=== PATIENT | male | born 1955 | race Hispanic/Latino ===

== ENCOUNTER 2018-01-15 17:03 | Observation (INO) | payer BC ==
[~2018-01-15] VITALS: Ht 165.1 cm; Wt 70.8 kg
[2018-01-15] MEDS ORDERED: SODIUM CHLORIDE 0.9% 1000ML 1,000 ML IV STA (17:23)
[2018-01-15] MEDS ORDERED: ONDANSETRON HCL INJ 2 MG/ML VIAL IV STA (17:23)
[2018-01-15] MEDS ORDERED: ASPIRIN 81 MG CHEW TAB PO ONE (17:30)
[2018-01-15 17:46] LABS: AMPHETAMINES SCREEN,URINE NEGATIVE (NEGATIVE); BENZODIAZEPINES SCREEN,URINE NEGATIVE (NEGATIVE); CLARITY,URINE CLEAR (CLEAR); COLOR,URINE YELLOW (YELLOW); KETONES,URINE 1+ (NEGATIVE); LEUKOCYTE ESTERASE ,URINE NEGATIVE (NEGATIVE); NITRITE,URINE NEGATIVE (NEGATIVE); PHENCYCLIDINE SCREEN,URINE NEGATIVE (NEGATIVE); PROTEIN,URINE DIPSTICK NEGATIVE (NEGATIVE)
[2018-01-15 17:47] LABS: BILIRUBIN,URINE NEGATIVE (NEGATIVE); URINE UROBILINOGEN 0.2 mg/dL (0.2 - 1)
[2018-01-15 17:49] LABS: BASOPHILS # (AUTO) 0.1 (0.0-0.1); EOSINOPHILS % 0.6 % (0.0-6.0); HEMATOCRIT 40.1 % (38.2-49.6); HEMOGLOBIN 14.6 g/dL (14.0-18.0); LYMPHOCYTES # (AUTO) 0.9 (1.0-3.2); LYMPHOCYTES % 17.9 % (18.0-39.1); MEAN CORPUSCULAR HEMOGLOBIN 34.7 pg (28-32); MEAN CORPUSCULAR HGB CONC 36.4 g/dL (31-35); MEAN CORPUSCULAR VOLUME 95.2 fL (81-99); MONOCYTES # (AUTO) 0.7 (0.2-0.8); MONOCYTES % 12.8 % (4.4-11.3); NEUTROPHILS # (AUTO) 3.4 (2.1-6.9); NEUTROPHILS % 67.5 % (38.7-80.0); PLATELET COUNT 162 x10e3/uL (140-360); RED BLOOD COUNT 4.21 x10e6/uL (4.3-5.7)
[2018-01-15 17:59] LABS: INR 0.79; PARTIAL THROMBOPLASTIN TIME 26.1 seconds (23.8-35.5); PROTHROMBIN TIME 11.7 seconds (11.9-14.5)
[2018-01-15 18:08] LABS: BACTERIA,URINE RARE /HPF; EPITHELIAL CELLS,URINE RARE /LPF
[2018-01-15 18:09] LABS: ALANINE AMINOTRANSFERASE 56 IU/L (0-55); ALBUMIN 4.9 g/dL (3.5-5.0); ALBUMIN/GLOBULIN RATIO 1.9 (0.8-2.0); ALKALINE PHOSPHATASE 63 IU/L (40-150); ANION GAP 19.7 mmol/L (8-16); BLOOD UREA NITROGEN 5 mg/dL (7-26); BUN/CREATININE RATIO 7 (6-25); CARBON DIOXIDE 28 mmol/L (22-29); CHLORIDE 82 mmol/L (98-107); CREATINE KINASE 323 IU/L (30-200); CREATININE, SERUM 0.76 mg/dL (0.72-1.25); EST GLOMERULAR FILTRATION RATE > 60 ML/MIN (60-); GLUCOSE 104 mg/dL (74-118); LIPASE 21 U/L (8-78); MAGNESIUM 1.8 MG/DL (1.3-2.1); SODIUM 127 mmol/L (136-145)
[2018-01-15 18:11] LABS: POTASSIUM 2.7 mmol/L (3.5-5.1)
[2018-01-15] MEDS ORDERED: MULTIVITAMINS- 12 INJECTION 10 ML, FOLIC ACID MDV 5 MG, THIAMINE HCL INJ 100 MG in SODI... IV ONE ×2 (18:15→18:30)
[2018-01-15 18:28] LABS: THYROID STIMULATING HORMONE 1.565 uIU/mL (0.350-4.940)
[2018-01-15] MEDS ORDERED: OXAZEPAM 10 MG CAP PO PRN (18:30)
[2018-01-15] MEDS ORDERED: FAMOTIDINE 20 MG/2 ML VIAL IV ONE (18:30)
[2018-01-15] MEDS ORDERED: LACTULOSE SYRUP 20 GM/30 ML UDC PO PRN (18:30)
[2018-01-15] MEDS ORDERED: ONDANSETRON HCL INJ 2 MG/ML VIAL IV PRN (18:30)
[2018-01-15] MEDS ORDERED: POTASSIUM CHLORIDE 20 MEQ TAB CR PO ONE (18:30)
[2018-01-15] MEDS ORDERED: DIPHENHYDRAMINE HCL INJ 50 MG/ML VIAL IV PRN (18:30)
[2018-01-15] MEDS ORDERED: LORAZEPAM INJ 2 MG/ML VIAL IV ONE (18:30)
[2018-01-15] MEDS ORDERED: ENALAPRILAT IV INJ 1.25 MG/ML VIAL IV PRN (18:30)
[2018-01-15] MEDS ORDERED: ENALAPRILAT IV INJ 1.25 MG/ML VIAL IV ONE (18:30)
--- NOTE | 2018-01-15 19:25 | Diagnostic Imaging Report ---
EXAMINATION: CHEST SINGLE (PORTABLE) INDICATION: Blurred vision. Dizziness. COMPARISON: None FINDINGS: TUBES and LINES: None. LUNGS: Lungs are well inflated. Lungs are clear. There is no evidence of pneumonia or pulmonary edema. PLEURA: No pleural effusion or pneumothorax. HEART AND MEDIASTINUM: The cardiomediastinal silhouette is unremarkable. Mild calcification of aortic arch. BONES AND SOFT TISSUES: No acute osseous lesion. Soft tissues are unremarkable. UPPER ABDOMEN: No free air under the diaphragm. IMPRESSION: No acute thoracic abnormality. Signed by: Dr. Soham Haddad M.D. on 01/15/2018 7:21 PM
--- NOTE | 2018-01-15 19:43 | Diagnostic Imaging Report ---
EXAMINATION: Head CT without contrast. HISTORY:Blurred vision. COMPARISON:None. TECHNIQUE: Multidetector axial images were obtained from the foramen magnum to the vertex without contrast. The images were reconstructed using brain and bone algorithms. Thin section brain images were reformatted into coronal and sagittal planes. Dose modulation, iterative reconstruction, and/or weight based adjustment of the mA/kV was utilized to reduce the radiation dose to as low as reasonably achievable. Intravenous contrast: None IMAGE QUALITY: Acceptable. FINDINGS: Skull/scalp: No lytic or blastic. lesions. No surgical changes. Parenchyma: Nonspecific few, scattered supratentorial white matter patchy hypodensity are likely related to small vessel ischemic changes. No acute hemorrhage, mass or acute major vascular territorial infarct. Arteries: No density suggestive of thrombosis. Dural sinuses: No abnormal density suggestive of thrombosis. Ventricles: No hydrocephalus or displacement. Extra-axial spaces: No abnormal density. Brain volume: Mild bilateral frontal cerebral volume loss. Craniocervical junction: No mass, Chiari malformation, or basilar invagination. Sella: No mass. Paranasal/mastoid sinuses: Imaged portions unremarkable. IMPRESSION: No acute intracranial abnormality, particularly no acute hemorrhage, mass or acute major vascular territorial infarct. Mild supratentorial white matter microvascular ischemic changes. Mild predominantly bilateral frontal cerebral volume loss. Signed by: Dr. Cortney Noble M.D. on 01/15/2018 7:40 PM
[2018-01-15] MEDS ORDERED: LOSARTAN POTASS50 MG (22:20)
[2018-01-15] MEDS ORDERED: ESIDRIX25 MG PO (22:20)
[2018-01-15] MEDS ORDERED: NORVASC5 MG PO (22:20)
[2018-01-16 05:00] LABS: BASOPHILS % 0.5 % (0.0-1.0); EOSINOPHILS # (AUTO) 0.1 (0.0-0.4); HEMATOCRIT 39.3 % (38.2-49.6); HEMOGLOBIN 13.9 g/dL (14.0-18.0); LYMPHOCYTES # (AUTO) 0.7 (1.0-3.2); MEAN CORPUSCULAR HEMOGLOBIN 34.4 pg (28-32); MEAN CORPUSCULAR HGB CONC 35.4 g/dL (31-35); MEAN CORPUSCULAR VOLUME 97.3 fL (81-99); MONOCYTES # (AUTO) 0.6 (0.2-0.8); MONOCYTES % 15.1 % (4.4-11.3); NEUTROPHILS # (AUTO) 2.2 (2.1-6.9); NEUTROPHILS % 61.1 % (38.7-80.0); PLATELET COUNT 132 x10e3/uL (140-360); RED BLOOD COUNT 4.04 x10e6/uL (4.3-5.7)
[2018-01-16 05:05] LABS: INR 0.83; PARTIAL THROMBOPLASTIN TIME 26.9 seconds (23.8-35.5); PROTHROMBIN TIME 12.2 seconds (11.9-14.5)
[2018-01-16 05:13] LABS: ANION GAP 10.2 mmol/L (8-16); BLOOD UREA NITROGEN < 5 mg/dL (7-26); CALCIUM 9.1 mg/dL (8.4-10.2); CARBON DIOXIDE 28 mmol/L (22-29); CHLORIDE 97 mmol/L (98-107); CREATININE, SERUM 0.74 mg/dL (0.72-1.25); EST GLOMERULAR FILTRATION RATE > 60 ML/MIN (60-); GLUCOSE 99 mg/dL (74-118); PHOSPHORUS 2.4 MG/DL (2.3-4.7); POTASSIUM 3.2 mmol/L (3.5-5.1); SODIUM 132 mmol/L (136-145)
[2018-01-16 05:21] LABS: BUN/CREATININE RATIO 7 (6-25)
[2018-01-16] MEDS: FAMOTIDINE 20 MG/2 ML VIAL IV SCH ×2 (09:20→16:35)
--- NOTE | 2018-01-16 09:48 | History and Physical ---
Mr. Mendez is a 62-year-old man with a history of hypertension and alcohol abuse. He came to the emergency room because for 1 week he has been feeling very weak and shaking, and he started having vomiting. He was not able to eat for 3 days. He had blurry vision, so he was sent to the emergency room. PAST MEDICAL HISTORY: He has a history of hypertension. ALLERGIES: NO KNOWN DRUG ALLERGIES. SURGICAL HISTORY: He denies. SOCIAL HISTORY: He does not smoke, but he drinks beer every day. PHYSICAL EXAMINATION GENERAL: Today, he is awake and alert. He still looks a little shaky. VITALS: Temperature 98.5, blood pressure 134/85. The O2 saturation is 100%. Pulse is 95 per minute. HEART: Regular rate. LUNGS: Clear to auscultation. ABDOMEN: Distended and soft. LOWER EXTREMITIES: No edema. No erythema. LABS: On the blood work, white count 3.65, hemoglobin 13.9, hematocrit 39.3. Potassium is 3.2 today. Sodium went up to 132. Creatinine is 0.74. Glucose is 99. Liver enzymes are elevated. Toxicology screen was negative. Alcohol was less than 10. Coagulation is normal. Urine: No important findings. On the chest x-ray, no acute findings. Head CT shows no acute intracranial abnormality. No hemorrhage, mass or any vascular event. ASSESSMENT AND PLAN 1. History of alcohol abuse. 2. Alcohol withdrawal symptoms. 3. Intractable vomiting. 4. Weakness and tremors. 5. Hypertension. The plan at the present time is to admit the patient to the hospital. IV fluids. We are going to get a neurology consult with Dr. King and GI consult with Dr. Solano. He is on IV Zofran, lactulose twice a day, famotidine. Also on DVT prophylaxis and anxiety medications. We are going to continue to monitor him. All of this was discussed with the patient, and questions were answered to satisfaction. Job#: [id number]
--- NOTE | 2018-01-16 10:44 | Consultation ---
DATE OF CONSULTATION: GASTROENTEROLOGY CONSULTATION REFERRING PHYSICIAN: Dr. Montero REASON FOR CONSULTATION: Elevated LFTs and alcoholism. HISTORY OF PRESENT ILLNESS: Mr. Mendez is a 62-year-old gentleman who came in with 1 week of shaking, nausea and vomiting. He denies any hematemesis, melena or hematochezia. He reports that he drinks alcohol because he cannot sleep. He does not seem to be particularly interested in quitting at this time. He currently denies any nausea and has not had any more vomiting. He reports feeling better since being given IV fluids and medications in the ER. He reports he wants to leave so he can go back to work. PAST MEDICAL HISTORY 1. Hypertension. 2. Alcoholism. MEDICATION AND ALLERGIES: REVIEWED. PLEASE SEE MAR MEDICATION RECONCILIATION FORM. SOCIAL HISTORY: Positive for daily heavy alcohol use, beer. No tobacco. No illicit substance. REVIEW OF SYSTEMS: Twelve-system review is positive for that mentioned in HPI, otherwise unremarkable. PHYSICAL EXAMINATION GENERAL: He is pleasant. He has a flat affect. Alert and oriented, in no acute distress. HEENT: Pupils are equal, round and reactive to light. NECK: Supple. LUNGS: Clear. CARDIOVASCULAR: S1, S2. ABDOMEN: Soft, nontender, nondistended with normal bowel sounds. EXTREMITIES: No clubbing, cyanosis or edema. PSYCH: He is calm but dysphoric. HEM-ONC: No bruising or adenopathy. The electronic health record was reviewed for laboratory and radiologic studies as well as history. ASSESSMENT 1. Elevated liver function tests likely secondary to alcohol use and alcoholic fatty liver. 2. Alcohol withdrawal. 3. Alcohol abuse, not really contemplating complete cessation. 4. Insomnia. I discussed with him that alcohol will disrupt his normal sleeping pattern, and it will take some time of abstinence to return to a more normal pattern and be more amenable to alternative treatment. He is minimally receptive to this thought process. 5. Hypertension. 6. Dehydration, improving. 7. Tachycardia related to alcohol withdrawal. PLAN: At the current time, I have counseled him regarding complete cessation. He seems fairly unresponsive to counseling. I instructed him on the consequences of continued alcohol consumption. We will continue with banana bag and other supportive measures. Will need further resuscitation and potassium replacement. Thank you very much for asking us to see Mr. Mendez. Any questions or concerns, please do not hesitate to contact me. Will follow along with you. Job#: [id number] REESE
[2018-01-16] MEDS: LOSARTAN POTASSIUM 100 MG TAB PO SCH (11:59)
[2018-01-16] MEDS: AMLODIPINE BESYLATE 5 MG TAB PO SCH (11:59)
[2018-01-16] MEDS: HYDROCHLOROTHIAZIDE 25 MG TAB PO SCH (11:59)
[2018-01-16] MEDS ORDERED: POTASSIUM CHLORIDE 20 MEQ TAB CR PO NR (12:00)
[2018-01-16] MEDS ORDERED: LOSARTAN POTASSIUM 100 MG TAB PO SCH (12:00)
[2018-01-16] MEDS ORDERED: HYDROCHLOROTHIAZIDE 25 MG TAB PO SCH (12:00)
[2018-01-16] MEDS ORDERED: AMLODIPINE BESYLATE 5 MG TAB PO SCH (12:00)
[2018-01-16 14:10] VITALS: BP 157/86
[2018-01-16] MEDS: MULTIVITAMINS/MINERALS TAB PO SCH (15:26)
[2018-01-16] MEDS: FOLIC ACID 1 MG TAB PO SCH (15:26)
[2018-01-16] MEDS: THIAMINE HCL 100 MG TAB PO SCH (15:26)
[2018-01-16 16:56] VITALS: BP 177/88
[2018-01-16] MEDS ORDERED: ENOXAPARIN SOD INJ 40 MG/0.4 ML SYR SC SCH (17:00)
[2018-01-16] MEDS ORDERED: CHLORDIAZEPOXIDE HCL 25 MG CAP PO PRN (18:15)
[2018-01-16 19:50] VITALS: BP 169/97
[2018-01-16 20:00] VITALS: BP 166/97
--- NOTE | 2018-01-16 20:36 | Consultation ---
DATE OF CONSULTATION: January 16, 2018 NEUROLOGY CONSULTATION HISTORY OF PRESENT ILLNESS: Mr. Mendez is a 62-year-old [id number] man with past medical history significant for hypertension and alcohol abuse, admitted to [facility] on January 15, 2018, with multiple symptoms which are described as follows: For the past few days, the patient has experienced nausea and vomiting, headache which is described as being located over the occiput, throbbing, and rated a 5 out of 10, shaking of the whole body, and confusion. When questioned regarding the confusion, the patient further describes it as a short-term memory loss. He reports being disoriented to time. He could not recall his calling his place of work and arranging for a leave of absence over last few days. Mr. Mendez reports he has had difficulty recalling the events of the last few days. The patient endorses repetition as well. He states he has asked his the same question multiple times, forgetting her answer every time. These symptoms were alarming to the patient's . So, she brought him to the emergency center at [facility] on the evening of January 15, 2018, for further evaluation. Upon arrival in the emergency center, the patient was afebrile with an elevated blood pressure of 179/105 mmHg and tachycardic with a pulse of 124 beats per minute. His neurological examination was documented as follows: Oriented times 3. Alert. Mood/affect normal. Speech normal. Cranial nerves normal (as tested). No cerebellar findings. No motor deficit. No sensory deficit. Reflexes normal. A CT of the brain without contrast was performed while the patient was in the emergency center. This study did not show evidence of recent large territorial ischemia, hemorrhage, or other acute pathology. Mr. Mendez was admitted to [facility] for further evaluation and treatment of his symptoms. As stated above, Mr. Mendez does have a history of alcohol abuse. The patient reports drinking 6 beers a day for the past 10 years. However, the patient stopped drinking alcohol approximately 4 days ago because he was not feeling well. Mr. Mendez does not report experiencing prior withdrawal symptoms or delirium tremens. At present, the symptoms described above have resolved. REVIEW OF SYSTEMS: Fast heartbeat, nausea, vomiting, confusion, headache, shaking of the whole body. PAST MEDICAL HISTORY: Hypertension, chronic back pain, alcohol abuse. PAST SURGICAL HISTORY: None. PAST HOSPITALIZATIONS: Mr. Mendez reports being hospitalized with a dog bite on his ear. FAMILY HISTORY: The patient knows nothing of his father, his side of the family, or their medical histories. The patient's maternal grandparents are . Their medical histories are unknown. The patient's mother is alive. She has diabetes mellitus and glaucoma. Mr. Mendez has 2 full siblings and one half-sibling. His brother is alive and has diabetes mellitus and glaucoma. His sister is from an overdose. His half-sister is alive and has obesity and diabetes mellitus. Mr. Mendez has 2 daughters, both of whom are alive and healthy. SOCIAL HISTORY: The patient is . 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 Mr. Mendez endorses a remote history of tobacco use in high school but has not smoked cigarettes in 40+ years. As detailed in the history of present illness, the patient has consumed 6 beers per day for the past 10 years. Mr. Mendez reports remote use of marijuana but has not smoked marijuana in 40+ years. HOME MEDICATIONS: Amlodipine 5 mg by mouth daily, hydrochlorothiazide 25 mg by mouth daily, losartan 50 mg by mouth daily. ALLERGIES: NO KNOWN DRUG ALLERGIES. NO KNOWN FOOD ALLERGIES. NO KNOWN ALLERGIES TO LATEX. NO KNOWN ALLERGIES TO IODINE OR OTHER CONTRAST MATERIALS. PHYSICAL EXAMINATION: VITAL SIGNS: Height 65 inches, weight 136 pounds, BMI 22.6 kg per meter squared. Blood pressure 148/89 mmHg. Pulse 94 beats per minute. Respiratory rate 18 breaths per minute. Oxygen saturation 100% on room air. GENERAL: The patient is awake and alert, does not appear distressed. HEENT: Normocephalic, atraumatic. Pupils are equal, round, and reactive to light. Moist mucous membranes. NECK: Supple. No appreciable thyromegaly. No appreciable carotid bruits. CARDIOVASCULAR: S1, S2, regular rate and rhythm. No murmurs, rubs, or gallops. RESPIRATORY: Clear to auscultation bilaterally. No wheezes, rhonchi, or rales. EXTREMITIES: The skin is warm and dry. No clubbing, cyanosis, or edema. The posterior tibial and dorsalis pedis pulses are 2+ and symmetric. SKIN: No rashes or lesions. NEUROLOGIC: Memory/Attention: The patient is awake and alert. Oriented to person, place, time, and situation. Cranial Nerves: Cranial nerve 1--Not tested. Cranial nerve 2, 3, 4, and 6--Pupils are equal and round, react briskly to light (from 4 mm to 2 mm). Extraocular movements intact. No nystagmus. Cranial nerve 5--Sensation to light touch and pinprick is intact in the bilateral V1 through V3 distributions. Strength of the temporalis and masseter muscles is within normal limits. Cranial nerve 7--The face is symmetric as are all facial movements. Strength is within normal limits. Cranial nerve 8--Hearing is intact to finger rub bilaterally. Cranial nerve 9, 10--The soft palate elevates equally and symmetrically. Cranial nerve 11--Normal strength of the bilateral sternocleidomastoid and trapezius muscles. Cranial nerve 12--The tongue protrudes midline and moves symmetrically from side to side. Strength: Bulk is normal. Strength is 5/5 in the bilateral deltoids, biceps, triceps, wrist flexors and extensors, finger flexors and extensors, intrinsic hand muscles, hip flexors, knee flexors and extensors, ankle dorsiflexion and plantar flexion, and intrinsic foot muscles. Tone is normal. DTRs: Deep tendon reflexes are 2+ and symmetric at the triceps, biceps, brachioradialis, patellas, and Achilles. Plantar responses are flexor bilaterally. Sensation: Sensation is intact to light touch and pinprick in both arms and both legs. Cerebellar: Qxzcpx-czyb-baapau and heel-karimi movements are intact without dysmetria or other impairment. Gait: Spontaneous gait is normal. Speech: Spontaneous speech is normal without appreciable dysarthria or aphasia. Repetition is intact. Involuntary Movements: None. Pronator Drift: None. LABORATORY DATA: The recent basic metabolic panel reveals a sodium of 132, potassium of 3.2, chloride of 97, BUN of less than 5. Liver function tests drawn on January 15, 2018, are significant for mildly elevated AST and ALT of 66 and 56, respectively. Cardiac enzymes are significant for an elevated creatine kinase of 323. CK-MB and troponin I are within normal limits. B-natriuretic peptide is less than 10.0. Lipase 21. TSH 1.565. The CBC with differential and platelets reveals a white blood cell count of 3.65 with 61.1%, neutrophils 20.0% lymphocytes, 15.1% monocytes, 3.0% eosinophils, and 0.5% basophils. The hemoglobin and hematocrit are 13.9 and 39.3, respectively. The platelet count is 132. The coagulation profile is within normal limits. A urinalysis was significant for 1+ ketones. A urine drug screen was negative. A blood alcohol level was less than 10.0. Preliminary results of the urine culture collected on January 15, 2018, show no growth, holding. DIAGNOSTIC STUDIES: Electrocardiogram January 15, 2018: Sinus tachycardia at 116 beats per minute. Chest x-ray January 15, 2018: No acute thoracic abnormality. CT of the brain without contrast January 15, 2018: On my review, there is no evidence of recent large territorial ischemia, hemorrhage, mass, or mass effect. There is diffuse cerebral atrophy, particularly of the bilateral frontal lobes, more than expected for the patient's age. There are findings compatible with mild to moderate chronic small-vessel ischemic disease. ASSESSMENT AND PLAN: Mr. Mendez is a 62-year-old man with past medical history significant for alcohol abuse, admitted to [facility] on January 15, 2018, with withdrawal from alcohol, or delirium tremens. At present, the patient's neurological examination is nonfocal. His laboratory data and other diagnostic studies have been reviewed and are documented above. The patient's constellation of symptoms (nausea and vomiting, headache, confusion, generalized tremulousness, et cetera) are characteristic of delirium tremens. While the nausea, vomiting, and headache have persisted for the past 3 to 4 days, the other symptoms began on the day of admission, January 15, 2018, compatible with a diagnosis of delirium tremens. RECOMMENDATIONS: 1. Mr. Mendez's symptoms have significantly improved/resolved. There are no recommendations for further evaluation or treatment from a neurological standpoint. 2. The patient is strongly advised to abstain from alcohol use in the future. Thank you for this consultation. There are no other recommendations from the neurology service at this time. Time spent: 70 minutes. Job#: [id number] EV MTDD
[2018-01-17] VITALS: BP 154/87
[2018-01-17 04:00] VITALS: BP 127/85
[2018-01-17 08:00] VITALS: BP 140/95
[2018-01-17] MEDS ORDERED: MULTIVITAMINS/MINERALS TAB PO SCH (09:00)
[2018-01-17] MEDS ORDERED: THIAMINE HCL 100 MG TAB PO SCH (09:00)
[2018-01-17] MEDS ORDERED: FOLIC ACID 1 MG TAB PO SCH (09:00)
[2018-01-17] MEDS: FAMOTIDINE 20 MG/2 ML VIAL IV SCH (09:21)
[2018-01-17] MEDS: LOSARTAN POTASSIUM 100 MG TAB PO SCH (09:22)
[2018-01-17] MEDS: THIAMINE HCL 100 MG TAB PO SCH (09:22)
[2018-01-17] MEDS: MULTIVITAMINS/MINERALS TAB PO SCH (09:22)
[2018-01-17] MEDS: AMLODIPINE BESYLATE 5 MG TAB PO SCH (09:22)
[2018-01-17] MEDS: HYDROCHLOROTHIAZIDE 25 MG TAB PO SCH (09:22)
[2018-01-17] MEDS: FOLIC ACID 1 MG TAB PO SCH (09:22)
[2018-01-17 09:37] LABS: ANION GAP 14.6 mmol/L (8-16); BLOOD UREA NITROGEN < 5 mg/dL (7-26); CALCIUM 10.5 mg/dL (8.4-10.2); CARBON DIOXIDE 28 mmol/L (22-29); CHLORIDE 96 mmol/L (98-107); CREATININE, SERUM 0.82 mg/dL (0.72-1.25); EST GLOMERULAR FILTRATION RATE > 60 ML/MIN (60-); GLUCOSE 106 mg/dL (74-118); POTASSIUM 3.6 mmol/L (3.5-5.1); SODIUM 135 mmol/L (136-145)
[2018-01-17 09:38] LABS: BUN/CREATININE RATIO 6 (6-25)
--- NOTE | 2018-01-17 09:43 | Discharge Summary ---
Mr. Mendez is a 62-year-old man with a history of hypertension and alcohol abuse came to the emergency room feeling weak for 1 week with shaking and vomiting. He has been seen by GI and neurologist. Today, he is feeling much better. PHYSICAL EXAMINATION GENERAL: He is awake and alert. He is eating with no problem. No more vomiting. VITALS: Blood pressure is 127/85, temperature 98.1. HEART: Regular rate. LUNGS: Clear to auscultation. ABDOMEN: Soft. BLOOD WORK: Potassium from yesterday 3.2. We are going to repeat it. Creatinine 0.74, glucose 99. White count 3.65, hemoglobin 13.9, hematocrit 39.3. Liver enzymes are elevated. Toxicology screen negative except for alcohol. Chest x-ray with no acute findings. DISCHARGE DIAGNOSES 1. Alcohol withdrawal. 2. Alcohol abuse. 3. Intractable vomiting, resolved. 4. Weakness and tremor. 5. Hypertension. 6. Elevated liver enzymes, probably due to alcohol abuse. PLAN: At the present time, we are going to repeat BMP. Potassium is normal. If okay with the consultants, the patient is going to be discharged home. Follow up with his PCP as an outpatient. He was instructed about the consequences to continue to drink. All risks and benefits have been explained to him about the importance of alcohol cessation. He seems to understand. Please see home medication reconciliation list. JAMAR RODRIGUEZ MD Job#: [id number] AK
[2018-01-17 11:04] VITALS: BP 140/95
[2018-01-17 12:00] VITALS: BP 135/90
== END 2018-01-17 14:30 | disposition home or self-care (01) ==
LOC: ER 17:03 → ERHOLD 19:21 → MED/SURG2 01-16 14:07
PROVIDERS: ADMIT Internal Medicine; ATTEND Internal Medicine
DX: F10.231 Alcohol dependence with withdrawal delirium (principal); E87.6 Hypokalemia; I16.0 Hypertensive urgency; E46 Unspecified protein-calorie malnutrition; Y90.0 Blood alcohol level of less than 20 mg/100 ml; K70.0 Alcoholic fatty liver; G47.00 Insomnia, unspecified; E86.0 Dehydration; M54.9 Dorsalgia, unspecified
CPT/HCPCS: 36415 ×3; 70450; 71045; 80048 ×2; 80053; 80307; 80320; 81001; 82550; 82553; 82948; 83690; 83735; 83880; 84100; 84443; 84484; 85025 ×2; 85610 ×2; 85730 ×2; 87086; 93005; 99284; G0378 ×3; J1650; J2060; J2405; J3411 ×3; J7030

== ENCOUNTER 2019-06-25 10:35 | Emergency (ER) | payer SELFPAY ==
[~2019-06-25] VITALS: Ht 167.6 cm; Wt 63.5 kg
[~2019-06-25 10:35] MED LIST: ESIDRIX25 MG PO; LOSARTAN POTASS50 MG; NORVASC5 MG PO
--- OUTSIDE RECORDS SUMMARY | 2019-06-25 10:38 | XMS REPORT ---
[facility] Address Unknown Phone Unavailable Care Team Providers Care Compliance Program Manager Name Role Phone JAMAR RODRIGUEZ Unavailable Unavailable Problems This patient has no known problems. Allergies, Adverse Reactions, Alerts This patient has no known allergies or adverse reactions. Medications This patient has no known medications. Results Test Description Test Time Test Comments Text Results Atomic Results Result Comments CT BRAIN WO 2018-01-15 19:30:00 [place] [address] Patient Name: NILO ALEXIS MR #: [id number] : 1955 Age/Sex: 62/M Req #: [id number] Adm Physician: JAMAR RODRIGUEZ MD Ordered by: EDMAR PATEL MID LEVEL PROVIDER Report #: [id number] Location: [facility] Room/Bed: [place] [address] Procedure: [id number] CT/CT BRAIN WO Exam Date: 01/15/18 Exam Time: 1855 REPORT STATUS: Signed EXAMINATION: Head CT without contrast. HISTORY:Blurr ed vision. COMPARISON:None. TECHNIQUE: Multidetector axial images were obtained from the foramen magnum to the vertex without contrast. The images were reconstructed using brain and bone algorithms. Thin section brain images were reformatted into coronal and sagittal planes. Dose modulation, iterative reconstruction, and/or weight based adjustment of the mA/kV was utilized to reduce the radiation dose to as low as reasonably achievable. Intravenous contrast: None IMAGE QUALITY: Acceptable. FINDINGS: Skull/scalp: No lytic or blastic. lesions. No surgical changes. Parenchyma: Nonspecific few, scattered supratentorial white matter patchy hypodensity are likely related to small vessel ischemic changes. No acute hemorrhage, mass or acute major vascular territorial infarct. Arteries: No density suggestive of thrombosis. Dural sinuses: No abnormal density suggestive of thrombosis. Ventricles: No hydrocephalus or displacement. Extra-axial spaces: No abnormal density. Brain volume: Mild bilateral frontal cerebral volume loss. Craniocervical junction: No mass, Chiari malformation, or basilar invagination. Sella: No mass. Paranasal/mastoid sinuses: Imaged portions unremarkable. IMPRESSION: No acute intracranial abnormality, particularly no acute hemorrhage, mass or acute major vascular territorial infarct. Mild supratentorial white matter microvascular ischemic changes. Mild predominantly bilateral frontal cerebral volume loss. Signed by: Dr. Cortney Noble M.D. on 01/15/2018 7:40 PM Dictated By: CORTNEY NOBLE MD 39 Transcribed By: MARIUM on 01/15/181939 COPY TO: EDMAR PATEL MID LEVEL PROVIDER CHEST SINGLE (PORTABLE) 2018-01-15 19:20:00 [place] [address] Patient Name: NILO ALEXIS MR #: [id number] : 1955 Age/Sex: 62/M Req #: [id number] Adm Physician: JAMAR RODRIGUEZ MD Ordered by: EDMAR PATEL MID LEVEL PROVIDER Report #: [id number] Location: [facility] Room/Bed: [place] [address] Procedure: [id number] DX/CHEST SINGLE (PORTABLE) Exam Date: 01/15/18 Exam Time: 1854 REPORT STATUS: Signed EXAMINATION: CHEST SINGLE (PORTABLE) IND ICATION: Blurred vision. Dizziness. COMPARISON: None FINDINGS: TUBES and LINES: None. LUNGS: Lungs are well inflated. Lungs are clear. There is no evidence of pneumonia or pulmonary edema. PLEURA: No pleural effusion or pneumothorax. HEART AND MEDIASTINUM: The cardiomediastinal silhouette is unremarkable. Mild calcification of aortic arch. BONES AND SOFT TISSUES: No acute osseous lesion. Soft tissues are unremarkable. UPPER ABDOMEN: No free air under the diaphragm. IMPRESSION: No acute thoracic abnormality. Signed by: Dr. Soham Uribe M.D. on 01/15/2018 7:21 PM Dictated By: JON URIBE MD, MD 20 Transcribed By: MARIUM on 01/15/181920 COPY TO: EDMAR PATEL NP
[2019-06-25] MEDS ORDERED: ASPIRIN 81 MG CHEW TAB PO ONE (10:45)
[2019-06-25] MEDS ORDERED: METOPROLOL TARTRATE INJ 1 MG/ML VIAL IV ONE (11:00)
[2019-06-25 11:11] LABS: HEMATOCRIT 46.1 % (38.2-49.6); HEMOGLOBIN 16.3 g/dL (14.0-18.0); RED BLOOD COUNT 4.75 x10e6/uL (4.3-5.7)
[2019-06-25 11:12] LABS: BASOPHILS % 0.5 % (0.0-1.0); EOSINOPHILS % 0.4 % (0.0-6.0); LYMPHOCYTES # (AUTO) 1.6 (1.0-3.2); LYMPHOCYTES % 27.6 % (18.0-39.1); MEAN CORPUSCULAR HEMOGLOBIN 34.3 pg (28-32); MEAN CORPUSCULAR HGB CONC 35.4 g/dL (31-35); MEAN CORPUSCULAR VOLUME 97.1 fL (81-99); MONOCYTES # (AUTO) 0.6 (0.2-0.8); MONOCYTES % 11.4 % (4.4-11.3); NEUTROPHILS # (AUTO) 3.4 (2.1-6.9); NEUTROPHILS % 59.9 % (38.7-80.0); PLATELET COUNT 265 x10e3/uL (140-360); RED CELL DISTRIBUTION WIDTH 12.8 % (11.7-14.4)
[2019-06-25] MEDS ORDERED: HYDROCODONE/APAP 10MG-325MG TAB PO ONE (11:15)
[2019-06-25 11:25] LABS: AMPHETAMINES SCREEN,URINE NEGATIVE (NEGATIVE); BENZODIAZEPINES SCREEN,URINE NEGATIVE (NEGATIVE); PHENCYCLIDINE SCREEN,URINE NEGATIVE (NEGATIVE)
[2019-06-25] MEDS ORDERED: METOPROLOL TARTRATE 25 MG TAB PO SCH (11:40)
[2019-06-25 12:01] LABS: INR 1.04; PROTHROMBIN TIME 14.2 seconds (11.9-14.5)
[2019-06-25 12:02] LABS: PARTIAL THROMBOPLASTIN TIME 27.6 seconds (23.8-35.5)
--- NOTE | 2019-06-25 12:05 | Diagnostic Imaging Report ---
EXAM: CHEST SINGLE (PORTABLE) DATE: 06/25/2019 10:42 AM INDICATION: Chest pain COMPARISON: 01/15/2018 FINDINGS: The trachea is midline. The lungs are symmetrically expanded without evidence for large focal consolidation, pneumothorax, or significant pleural effusion. The cardiomediastinal silhouette is stable in appearance. Calcification noted within the aortic arch. No acute osseous abnormality is identified. The surrounding soft tissues are unremarkable. IMPRESSION: No acute cardiopulmonary process identified. Signed by: Dr. Nick Flores MD on 06/25/2019 12:02 PM
[2019-06-25 12:11] LABS: MAGNESIUM 1.7 MG/DL (1.3-2.1)
[2019-06-25 12:35] LABS: ALANINE AMINOTRANSFERASE 89 IU/L (0-55); ALBUMIN 3.9 g/dL (3.5-5.0); ALBUMIN/GLOBULIN RATIO 1.3 (0.8-2.0); ALKALINE PHOSPHATASE 82 IU/L (40-150); ANION GAP 18.9 mmol/L (8-16); BLOOD UREA NITROGEN 10 mg/dL (7-26); BUN/CREATININE RATIO 10 (6-25); CALCIUM 9.1 mg/dL (8.4-10.2); CARBON DIOXIDE 22 mmol/L (22-29); CHLORIDE 100 mmol/L (98-107); CREATINE KINASE 132 IU/L (30-200); CREATININE, SERUM 0.96 mg/dL (0.72-1.25); EST GLOMERULAR FILTRATION RATE > 60 ML/MIN (60-); GLUCOSE 100 mg/dL (74-118); POTASSIUM 3.9 mmol/L (3.5-5.1); SODIUM 137 mmol/L (136-145)
[2019-06-25 13:00] LABS: THYROID STIMULATING HORMONE 0.984 uIU/mL (0.350-4.940)
[2019-06-25] MEDS ORDERED: MORPHINE SULFATE 2 MG/ML SYR 1ML IV PRN (13:00)
[2019-06-25] MEDS ORDERED: ONDANSETRON HCL INJ 2MG/ML 2ML 2 MG/ML VIAL IV PRN (13:00)
[2019-06-25] MEDS ORDERED: NITROGLYCERIN 0.4 MG SUBL SL PRN (13:00)
--- NOTE | 2019-06-25 14:20 | NUR ---
Patient informed on the decision to admit him to the hospital for further evaluation and testing. The patient refused to be admitted stating that he does not have insurance or a job at this time and is concerned about medical bills. The patient was encouraged to stay but ultimately refused to stay for further treatment. Patient is being discharged AMA.
[2019-06-25] MEDS ORDERED: FAMOTIDINE 20 MG/2 ML VIAL IV SCH (21:00)
[2019-06-26] MEDS ORDERED: ASPIRIN 81 MG ENTERIC COATED PO SCH (09:00)
== END 2019-06-25 14:30 | disposition home or self-care (01) ==
LOC: ER 10:35 → UNDOADMOB 12:50 → ERHOLD 12:50
DX: R07.89 Other chest pain (principal)
CPT/HCPCS: 36415; 71045; 80053; 80307; 82550; 82553; 83735; 83880; 84443; 84484; 85025; 85379; 85610; 85730; 93005; 99284